=== PATIENT | female | born 1990 ===

== ENCOUNTER 2021-09-19 05:07 | Inpatient (IN) ==
[2021-09-19] MEDS ORDERED: Ringers Solution, Lactated 1,000 ML IVC ONE (05:47)
[2021-09-19] MEDS ORDERED: Metoclopramide 10 MG/2 ML VIAL IVP ONE (05:47)
[2021-09-19] MEDS ORDERED: Famotidine 20 MG/2 ML VIAL IVP ONE (05:47)
[2021-09-19 06:25] LABS: Basophils % 0.5 %; Eosinophils # 0.1 K/mcL (0.0-0.6); Eosinophils % 1.2 %; Hematocrit 29.4 % (35.3-44.9); Hemoglobin 8.9 g/dL (11.5-15.4); Immature Granulocytes % 0.7 % (0-4); Lymphocytes # 2.1 K/mcL (0.6-4.6); Mean Corpuscular HGB Conc 30.3 g/dL (31.6-35.5); Mean Corpuscular Hemoglobin 23.9 pg (28.0-33.3); Mean Corpuscular Volume 78.8 fL (83.0-100.0); Mean Platelet Volume 10.7 fL (9.4-12.4); Monocytes # 0.6 K/mcL (0.0-1.3); Monocytes % 6.6 %; Neutrophils # 5.8 K/mcL (1.6-8.9); Platelet Count 290 K/mcL (140-400); Red Blood Count 3.73 M/mcL (3.82-4.97); Red Cell Distribution Width 16.5 % (11.5-14.5); White Blood Count 8.6 K/mcL (4.3-11.1)
[2021-09-19] MEDS ORDERED: ceFAZolin 2,000 MG in 0.9 % Sodium Chloride 100 ML IVPB ONE (07:09)
[2021-09-19] MEDS ORDERED: *HR* FentaNYL (PF) 100 MCG/2 ML VIAL IVP PRN (07:19)
[2021-09-19] MEDS ORDERED: Ondansetron 4 MG/2 ML VIAL IVP PRN ×2 (07:19→10:53)
[2021-09-19] MEDS ORDERED: *HR* Morphine Sulfate/PF 10 MG/10 ML AMPUL ONE (07:24)
[2021-09-19] MEDS ORDERED: Acetaminophen IV 1,000 MG/100 ML BAG IVPB ONE (07:51)
[2021-09-19 07:57] LABS: Amphetamine Screen,Urine Negative ng/mL (Cutoff=1000); Barbiturate Screen,Urine Negative ng/mL (Cutoff=200); Benzodiazepines Screen,Urine Negative ng/mL (Cutoff=200); Cannabinoid Screen,Urine Negative ng/mL (Cutoff = 50); Cocaine Screen,Urine Negative ng/mL (Cutoff= 300); Opiate Screen,Urine Negative ng/mL (Cutoff=300); Phencyclidine Screen,Urine Negative ng/mL (Cutoff=25)
[2021-09-19] MEDS: Oxytocin 30 UNIT/503 ML BAG IVC SCH ×3 (08:05→10:16)
[2021-09-19] MEDS ORDERED: Ketorolac 30 MG/ML VIAL ONE (08:05)
[2021-09-19] MEDS ORDERED: Ringers Solution, Lactated 1,000 ML ONE (08:22)
[2021-09-19] MEDS ORDERED: *HR* Nalbuphine 10 MG/ML AMPUL IV PRN (09:43)
[2021-09-19] MEDS ORDERED: *HR* Promethazine 25 MG/ML VIAL IM ONE (09:44)
[2021-09-19] MEDS ORDERED: Metoclopramide 10 MG/2 ML VIAL IVP PRN (10:53)
[2021-09-19] MEDS ORDERED: Simethicone 80 MG TAB.CHEW PO PRN (10:53)
[2021-09-19] MEDS: Prenatal Vit/FA 1 EACH TABLET PO SCH (12:10)
[2021-09-19] MEDS: Ibuprofen 600 MG TABLET PO SCH ×2 (12:10→22:09)
[2021-09-19] MEDS: Acetaminophen 325 MG TABLET PO SCH ×2 (12:10→22:08)
[2021-09-19] MEDS: *HR* OxyCODONE Immed Rel 5 MG TABLET PO PRN (14:16)
[2021-09-19] MEDS: ceFAZolin 2,000 MG in Water for inj. (sterile) 10 ML IVP SCH (16:32)
[2021-09-19] MEDS: Ringers Solution, Lactated 1,000 ML IVC SCH (17:42)
[2021-09-20] MEDS: *HR* OxyCODONE Immed Rel 5 MG TABLET PO PRN ×3 (01:38→12:54)
[2021-09-20] MEDS: ceFAZolin 2,000 MG in Water for inj. (sterile) 10 ML IVP SCH ×2 (01:39→08:35)
[2021-09-20] MEDS: Ibuprofen 600 MG TABLET PO SCH ×2 (04:42→10:23)
[2021-09-20 05:59] LABS: Basophils % 0.5 %; Eosinophils # 0.1 K/mcL (0.0-0.6); Eosinophils % 0.7 %; Hematocrit 24.9 % (35.3-44.9); Immature Granulocytes % 0.6 % (0-4); Lymphocytes # 1.4 K/mcL (0.6-4.6); Lymphocytes % 15.7 %; Mean Corpuscular HGB Conc 29.3 g/dL (31.6-35.5); Mean Corpuscular Hemoglobin 23.6 pg (28.0-33.3); Mean Corpuscular Volume 80.6 fL (83.0-100.0); Mean Platelet Volume 10.9 fL (9.4-12.4); Monocytes # 0.5 K/mcL (0.0-1.3); Monocytes % 5.5 %; Neutrophils # 6.7 K/mcL (1.6-8.9); Platelet Count 243 K/mcL (140-400); Red Blood Count 3.09 M/mcL (3.82-4.97); Red Cell Distribution Width 16.7 % (11.5-14.5); White Blood Count 8.7 K/mcL (4.3-11.1)
[2021-09-20 06:11] LABS: Hemoglobin 7.3 g/dL (11.5-15.4)
[2021-09-20 06:16] VITALS: O2SAT 95
[2021-09-20 07:44] VITALS: BP 100/58; PULSE 82; TEMP 98.3
[2021-09-20] MEDS: Ringers Solution, Lactated 1,000 ML IVC SCH ×2 (07:59→08:00)
[2021-09-20] MEDS: Acetaminophen 325 MG TABLET PO SCH ×2 (08:00→10:23)
[2021-09-20] MEDS: Prenatal Vit/FA 1 EACH TABLET PO SCH (08:28)
[2021-09-20] MEDS ORDERED: Sodium Ferric Gluconat/Sucrose 125 MG in 0.9 % Sodium Chloride 100 ML IVPB ONE (10:30)
== END 2021-09-20 13:05 | disposition home or self-care (01) | DRG 540 ==
LOC: 1NENULAB 05:07 → 1NENUOBS 09:29
PROVIDERS: ADMIT Obstetrics & Gynecology; ATTEND Obstetrics & Gynecology